=== PATIENT | female | born 1980 | race Caucasian/White ===

== ENCOUNTER 2018-04-27 05:20 | Inpatient (IN) | payer MEDICAID ==
[~2018-04-27] VITALS: Ht 162.6 cm; Wt 67.6 kg
[2018-04-27] MEDS ORDERED: PREN-546 PO (05:40)
[2018-04-27] MEDS ORDERED: FERR-252 PO (05:40)
[2018-04-27] MEDS ORDERED: TERBUTALINE 1 MG/ML VIAL SUBQ ONE (05:49)
[2018-04-27] MEDS ORDERED: TERBUTALINE 1 MG/ML VIAL SUBQ SCH (06:00)
[2018-04-27] MEDS ORDERED: LACTATED RINGERS 1,000 ML IV SCH (06:09)
[2018-04-27 06:45] LABS: BASOPHILS % (AUTO) 0.1 % (0.0-2.0); EOSINOPHILS # (AUTO) 0.1 K/uL (0-0.4); EOSINOPHILS % (AUTO) 0.8 % (0.0-4.0); HEMATOCRIT 39.1 % (36-48); HEMOGLOBIN 12.8 g/dL (12.0-16.0); LYMPHOCYTES % (AUTO) 23.8 % (20.5-51.1); MEAN CORPUSCULAR HEMOGLOBIN 30 pg (27-31); MEAN CORPUSCULAR HGB CONC 33 g/dL (33-37); MEAN CORPUSCULAR VOLUME 89.9 fL (80-94); MONOCYTES % (AUTO) 8.3 % (1.7-9.3); NEUTROPHILS # (AUTO) 8.4 K/uL (1.8-7.7); PLATELET COUNT (AUTO) 181 K/uL (140-450); RED BLOOD CELL COUNT(AUTO) 4.35 MIL/uL (4.20-5.40); RED CELL DISTRIBUTION WIDTH 15.3 % (11.6-13.7); WHITE BLOOD COUNT (AUTO) 12.5 K/uL (4.8-10.8)
[2018-04-27 06:46] LABS: BILIRUBIN,URINE NEGATIVE (NEGATIVE); BLOOD, URINE NEGATIVE (NEGATIVE); COLOR,URINE YELLOW (YELLOW); LEUKOCYTE ESTERASE ,URINE NEGATIVE (NEGATIVE); NITRITE, URINE NEGATIVE (NEGATIVE); UGLUCOSE NEGATIVE (NEGATIVE)
[2018-04-27 06:56] LABS: APPEARANCE,URINE CLEAR (CLEAR)
[2018-04-27 07:10] LABS: ANION GAP 15.4 (8-16); CREATININE 0.7 mg/dL (0.6-1.3); POTASSIUM 3.4 mmol/L (3.5-5.1); TOTAL BILIRUBIN 0.4 mg/dL (0.0-1.0)
[2018-04-27 07:29] VITALS: BP 123/72
[2018-04-27] MEDS ORDERED: ceFAZolin 1,000 MG VIAL ONE (07:56)
[2018-04-27] MEDS ORDERED: ePHEDrine 50 MG/ML VIAL ONE (08:00)
[2018-04-27] MEDS ORDERED: OXYTOCIN 10 UNITS/ML VIAL ONE (08:00)
[2018-04-27] MEDS ORDERED: ONDANSETRON 4 MG/2 ML VIAL ONE (08:00)
[2018-04-27] MEDS ORDERED: CITRIC ACID/SODIUM CITRATE 30 ML UDC PO SCH (08:02)
[2018-04-27] MEDS ORDERED: KETAMINE 500 MG/5 ML VIAL ONE (08:10)
[2018-04-27] MEDS ORDERED: MIDAZOLAM 2 MG/2 ML VIAL ONE (08:10)
[2018-04-27] MEDS ORDERED: fentaNYL 0.05 MG/ML VIAL ONE (08:10)
[2018-04-27] MEDS ORDERED: MORPHINE PRES FREE 10 MG/10 ML AMP IV ONE (08:11)
[2018-04-27] MEDS ORDERED: BUPIVACAINE-MPF 0.5% 30 ML VIAL INJ ONE (08:13)
[2018-04-27] MEDS ORDERED: ceFAZolin 1,000 MG VIAL IVP ONE (08:40)
[2018-04-27] MEDS ORDERED: KETOROLAC 30 MG/ML VIAL IVP PRN (09:00)
[2018-04-27] MEDS ORDERED: OXYTOCIN 20 UNITS/LR PREMIX 1,000 ML IV ONE (09:50)
[2018-04-27] MEDS ORDERED: diphenhydrAMINE 50 MG/ML VIAL ONE (09:50)
[2018-04-27] MEDS: diphenhydrAMINE 50 MG/ML VIAL IVP PRN ×4 (10:40→23:42)
[2018-04-27] MEDS ORDERED: HYDROmorphone 1 MG/ML AMP IVP PRN (10:55)
[2018-04-27] MEDS ORDERED: MEASLES, MUMPS, AND RUBELLA 1 VIAL SQVAC PRN (10:55)
--- NOTE | 2018-04-27 12:54 | NUR ---
PATIENT HAS BEEN SCREENED AND CATEGORIZED LOW NUTRITION RISK. PATIENT WILL BE SEEN WITHIN 7 DAYS OF ADMISSION. 05/04/18 RILEY VILLATORO MBA, RD
[2018-04-27] MEDS: OXYTOCIN 20 UNITS in LACTATED RINGERS 1,000 ML IV SCH (22:24)
[2018-04-28] MEDS ORDERED: OXYTOCIN 20 UNITS/LR PREMIX 1,000 ML IV ONE (06:35)
[2018-04-28] MEDS: OXYTOCIN 20 UNITS in LACTATED RINGERS 1,000 ML IV SCH (06:45)
[2018-04-28 08:24] LABS: BASOPHILS % (AUTO) 0.2 % (0.0-2.0); EOSINOPHILS % (AUTO) 0.1 % (0.0-4.0); HEMATOCRIT 30.8 % (36-48); HEMOGLOBIN 10.3 g/dL (12.0-16.0); LYMPHOCYTES # (AUTO) 1.3 K/uL (2.5-16.5); LYMPHOCYTES % (AUTO) 10.9 % (20.5-51.1); MEAN CORPUSCULAR HEMOGLOBIN 30 pg (27-31); MEAN CORPUSCULAR HGB CONC 34 g/dL (33-37); MEAN CORPUSCULAR VOLUME 89.5 fL (80-94); MONOCYTES # (AUTO) 1.2 K/uL (0.8-1.0); MONOCYTES % (AUTO) 9.7 % (1.7-9.3); NEUTROPHILS # (AUTO) 9.5 K/uL (1.8-7.7); NEUTROPHILS % (AUTO) 79.1 % (42.2-75.2); PLATELET COUNT (AUTO) 147 K/uL (140-450); RED BLOOD CELL COUNT(AUTO) 3.45 MIL/uL (4.20-5.40); RED CELL DISTRIBUTION WIDTH 15.9 % (11.6-13.7)
[2018-04-28] MEDS: KETOROLAC 30 MG/ML VIAL IVP PRN ×2 (10:49→21:31)
[2018-04-28] MEDS ORDERED: ACETAMINOPHEN 325 MG TAB PO PRN (22:00)
[2018-04-29] MEDS ORDERED: SODIUM PHOSPHATE 118 ML ENEM RC PRN (08:00)
[2018-04-29] MEDS ORDERED: DOCUSATE SODIUM 100 MG GELCAP PO PRN (08:00)
[2018-04-29] MEDS ORDERED: SIMETHICONE 80 MG TAB.CHEW PO PRN (08:00)
[2018-04-29] MEDS ORDERED: BISACODYL 5 MG TABEC PO PRN (08:00)
[2018-04-29] MEDS ORDERED: IBUPROFEN 600 MG TAB PO PRN (08:00)
[2018-04-29] MEDS ORDERED: oxyCODONE/APAP 5/325 MG 1 TAB TAB PO PRN (08:00)
[2018-04-30] MEDS ORDERED: IBUP-1842 PO (13:22)
== END 2018-04-30 15:25 | disposition home or self-care (01) | DRG 540 ==
LOC: MLD 05:20 → OBSVTOIN 05:45 → MFCC 08:00
PROVIDERS: ADMIT Obstetrics & Gynecology; ATTEND Obstetrics & Gynecology
PROC: 3E0234Z Introduction of Serum, Toxoid and Vaccine into Muscle, Percutaneous Approach (ICD-10-PCS; 2018-04-27)
PROC: 0UT70ZZ Resection of Bilateral Fallopian Tubes, Open Approach (ICD-10-PCS; 2018-04-27)
PROC: 10D00Z1 Extraction of Products of Conception, Low, Open Approach (ICD-10-PCS; principal; 2018-04-27 08:00)
DX: O34.211 Maternal care for low transverse scar from previous cesarean delivery (principal); O09.523 Supervision of elderly multigravida, third trimester; O69.1XX0 Labor and delivery complicated by cord around neck, with compression, not applicable or unspecified; Z30.2 Encounter for sterilization; Z37.0 Single live birth; Z3A.39 39 weeks gestation of pregnancy; Z23 Encounter for immunization
CPT/HCPCS: 36415; 36416; 51702; 80053; 81003; 82261; 82776; 82947; 83021; 83498; 83516; 84030; 84443; 85025; 86592; 86886; 86900; 86901; 87086; 88302; 90715; G0378; J0690; J1200; J1885; J2250; J2270; J2405; J2590; J3010; J3105; J3490; J7060; J7120